=== PATIENT | female | born 1995 | race African-American/Black ===

== ENCOUNTER 2017-07-07 04:12 | Emergency (ER) | payer OTHER ==
[~2017-07-07] VITALS: Ht 160 cm; Wt 61.7 kg
[2017-07-07 04:38] LABS: URINE BILIRUBIN NEGATIVE (Negative); URINE BLOOD NEGATIVE (Negative); URINE COLOR YELLOW; URINE GLUCOSE-RANDOM* NEGATIVE (Negative); URINE KETONES 3+ (Negative); URINE PROTEIN (DIPSTICK) NEGATIVE (Negative); URINE SPECIFIC GRAVITY 1.015 (1.003-1.035)
[2017-07-07] MEDS ORDERED: ACCUNEB SO1.25 MG/1 INH (04:40)
[2017-07-07] MEDS ORDERED: FLOVENT HFA 4444 MCG INH (04:40)
[2017-07-07 04:45] LABS: URINE LEUKOCYTES-REFLEX 1+ (Negative)
[2017-07-07 04:54] LABS: CASTS None Seen /LPF (None Seen); CRYSTALS None Seen /LPF (None Seen); SQUAMOUS 4-10 Moderate /LPF (0-3); URINE RBC None Seen /HPF (0-2); URINE WBC-REFLEX 0-5 Rare /HPF (0-5)
[2017-07-07 05:09] LABS: ABSOLUTE NEUTROPHILS 4.5 thou/uL (1.4-8.2); BASOPHILS 0.6 % (0.0-2.0); EOSINOPHILS 1.3 % (0.0-3.0); HEMATOCRIT 36.4 % (37.0-47.0); HEMOGLOBIN 12.5 gm/dL (12.0-15.0); LYMPHOCYTES 21.7 % (24.0-44.0); MCH 30.8 pg (26.0-34.0); MCHC 34.3 g/dL (28.0-37.0); MCV 89.8 fL (80.0-100.0); MONOCYTES 8.7 % (1.0-8.0); PLATELET COUNT 247 thou/uL (150-400); POLYS 67.7 % (36.0-66.0); RBC 4.05 mil/uL (4.20-5.00); RDW 14.5 % (10.5-14.5); WBC 6.7 thou/uL (4.0-11.0)
[2017-07-07 05:13] LABS: MANUAL DIFF NO
[2017-07-07 05:25] LABS: CALCIUM 8.7 mg/dL (8.5-10.1); CREATININE 0.6 mg/dL (0.6-1.0); POTASSIUM 3.1 mmol/L (3.5-5.1)
[2017-07-07] MEDS ORDERED: ZOFRAN ODT4 MG DISSOLVE (05:25)
[2017-07-07 05:29] LABS: ALBUMIN 3.3 g/dL (3.4-5.0); TOTAL BILIRUBIN 0.4 mg/dL (<0.1-1.0)
[2017-07-07 06:05] VITALS: BP 113/68
== END 2017-07-07 06:07 | disposition home or self-care (01) ==
LOC: ER 04:12
PROVIDERS: Emergency Medicine
DX: O21.8 Other vomiting complicating pregnancy (principal); N91.1 Secondary amenorrhea; Z3A.00 Weeks of gestation of pregnancy not specified